=== PATIENT | female | born 1990 | race Caucasian/White ===

== ENCOUNTER 2016-09-30 15:16 | Emergency (ER) | payer OTHER ==
[~2016-09-30] VITALS: Ht 162.6 cm; Wt 104.3 kg
[~2016-09-30 15:16] MED LIST: FERROUS SULFAT325 MG PO; PRENATAL VITAMI1 T10 PO
[2016-09-30 15:44] VITALS: BP 115/63
--- NOTE | 2016-09-30 16:30 | NUR ---
PT STATES LOWER ABDOMEN PAIN HEMATURIA FOR 3 HOURS . DENIES V/D; SKIN IS PINK/WARM/DRY; AAOX4 WITH EVEN AND STEADY GAIT; LUNGS CLEAR BL; HR EVEN AND REGULAR; PT DENIES ANY FEVER, CP, SOB, OR COUGH AT THIS TIME; PATIENT STATES PAIN OF 8/10 AT THIS TIME; VSS; PATIENT POSITIONED FOR COMFORT; HOB ELEVATED; BEDRAILS UP X2; BED DOWN. ER MD MADE AWARE OF PT STATUS.
--- NOTE | 2016-09-30 17:40 | NUR ---
PT STATES PAIN SCALE 5/10 AT THIS TIME.
[2016-09-30 18:06] VITALS: BP 112/78
--- NOTE | 2016-09-30 18:06 | NUR ---
Patient discharged with v/s stable. Written and verbal after care instructions given and explained. Patient alert, oriented and verbalized understanding of instructions. Ambulatory with steady gait. All questions addressed prior to discharge. ID band removed. Patient advised to follow up with PMD. Rx of TRAMADOL AND MOTRIN given. Patient educated on indication of medication including possible reaction and side effects. Opportunity to ask questions provided and answered.
== END 2016-09-30 18:06 | disposition home or self-care (01) ==
LOC: MED 15:16
DX: N93.8 Other specified abnormal uterine and vaginal bleeding (principal); J45.909 Unspecified asthma, uncomplicated
CPT/HCPCS: 36415; 76856; 81002; 81025; 84702; 99285; Q0092

== ENCOUNTER 2016-10-17 09:17 | Emergency (ER) | payer OTHER ==
[~2016-10-17] VITALS: Ht 157.5 cm; Wt 104.3 kg
[2016-10-17 09:38] VITALS: BP 127/96
--- NOTE | 2016-10-17 09:41 | NUR ---
Patient ambulated to bed 07.
--- NOTE | 2016-10-17 09:55 | NUR ---
PATIENT PRESENTS TO ED WITH COUGH AND FEVER X7 DAYS WITH SOB; DENIES N/V/D; SKIN IS PINK/WARM/DRY; AAOX4 WITH EVEN AND STEADY GAIT; LUNGS CLEAR BL; HR EVEN AND REGULAR; PT DENIES ANY CP AT THIS TIME; PATIENT STATES PAIN OF 6/10 AT THIS TIME; VSS; PATIENT POSITIONED FOR COMFORT; HOB ELEVATED; BEDRAILS UP X2; BED DOWN. ER MD MADE AWARE OF PT STATUS.
--- NOTE | 2016-10-17 10:14 | NUR ---
Dr. Smith evaluating patient at bedside.
[2016-10-17 10:40] VITALS: BP 127/96
--- NOTE | 2016-10-17 10:40 | NUR ---
Patient discharged with v/s stable. Written and verbal after care instructions given and explained. Patient alert, oriented and verbalized understanding of instructions. Ambulatory with steady gait. All questions addressed prior to discharge. ID band removed. Patient advised to follow up with PMD. Rx of AMOXICILLIN, ALBUTEROL INHALER, DEXTHROMETHORPHAN given. Patient educated on indication of medication including possible reaction and side effects. Opportunity to ask questions provided and answered.
== END 2016-10-17 10:40 | disposition home or self-care (01) ==
LOC: MED 09:40
DX: J20.9 Acute bronchitis, unspecified (principal); R03.0 Elevated blood-pressure reading, without diagnosis of hypertension

== ENCOUNTER 2016-12-15 19:32 | Emergency (ER) | payer OTHER ==
[~2016-12-15] VITALS: Ht 160 cm; Wt 112.5 kg
[2016-12-15 19:56] VITALS: BP 120/64
--- NOTE | 2016-12-15 22:35 | NUR ---
PATIENT LEFT WITHOUT BEING SEEN BY DR. SCHMID. NO FURTHER CARE PROVIDED FOR PATIENT.
== END 2016-12-15 22:35 | disposition left against medical advice (07) ==
LOC: MED 19:32
DX: N93.9 Abnormal uterine and vaginal bleeding, unspecified (principal); Z53.21 Procedure and treatment not carried out due to patient leaving prior to being seen by health care provider

== ENCOUNTER 2016-12-20 13:30 | Emergency (ER) | payer OTHER ==
[~2016-12-20] VITALS: Ht 160 cm; Wt 112.9 kg
[2016-12-20 14:36] VITALS: BP 131/75
[2016-12-20 14:59] LABS: BASOPHILS # (AUTO) 0.1 K/uL (0.00-0.22); BASOPHILS % (AUTO) 1.3 % (0.0-2.0); EOSINOPHILS # (AUTO) 0.3 K/uL (0-0.4); EOSINOPHILS % (AUTO) 2.4 % (0.0-4.0); HEMATOCRIT 31.5 % (36-48); LYMPHOCYTES # (AUTO) 3.1 K/uL (2.5-16.5); LYMPHOCYTES % (AUTO) 27.9 % (20.5-51.1); MEAN CORPUSCULAR HEMOGLOBIN 24 pg (27-31); MEAN CORPUSCULAR HGB CONC 32 g/dL (33-37); MEAN CORPUSCULAR VOLUME 75 fL (80-94); MONOCYTES # (AUTO) 0.5 K/uL (0.8-1.0); MONOCYTES % (AUTO) 4.2 % (1.7-9.3); NEUTROPHILS # (AUTO) 7.3 K/uL (1.8-7.7); NEUTROPHILS % (AUTO) 64.2 % (42.2-75.2); PLATELET COUNT (AUTO) 265 K/uL (140-450); RED BLOOD CELL COUNT(AUTO) 4.17 MIL/uL (4.20-5.40); RED CELL DISTRIBUTION WIDTH 15.3 % (11.6-13.7); WHITE BLOOD COUNT (AUTO) 11.3 K/uL (4.8-10.8)
[2016-12-20 15:11] LABS: ANION GAP 13.4 (8-16); CALCIUM 8.7 mg/dL (8.5-10.1); CARBON DIOXIDE 28.2 mmol/L (21-32); CREATININE 0.7 mg/dL (0.6-1.3); POTASSIUM 3.6 mmol/L (3.5-5.1)
[2016-12-20 15:16] LABS: ALBUMIN 3.7 g/dL (3.4-5.0); TOTAL BILIRUBIN 0.5 mg/dL (0.0-1.0); TOTAL PROTEIN, SERUM 8.2 g/dL (6.4-8.2)
== END 2016-12-20 17:28 | disposition left against medical advice (07) ==
LOC: MED 13:30
DX: N93.9 Abnormal uterine and vaginal bleeding, unspecified (principal); Z53.21 Procedure and treatment not carried out due to patient leaving prior to being seen by health care provider
CPT/HCPCS: 36415; 76830; 80053; 85025

== ENCOUNTER 2017-03-05 18:31 | Emergency (ER) | payer OTHER ==
[~2017-03-05] VITALS: Ht 160 cm; Wt 110.0 kg
[2017-03-05 18:36] VITALS: BP 132/80
--- NOTE | 2017-03-05 19:48 | NUR ---
Patient to bed 08.
--- NOTE | 2017-03-05 20:06 | NUR ---
PATIENT PRESENTS TO ED WITH 26F BIB FAMILY C/O RIGHT LOWER ABDOMINAL PAIN X 5 DAYS WITH NAUSEA. HX: ASTHMA, ANEMIA RX: PT DENIES. DENIES V/D; SKIN IS PINK/WARM/DRY; AAOX4 WITH EVEN AND STEADY GAIT; LUNGS CLEAR BL; HR EVEN AND REGULAR; PT DENIES ANY FEVER, CP, SOB, OR COUGH AT THIS TIME; PATIENT STATES PAIN OF 10/10 AT THIS TIME; PATIENT POSITIONED FOR COMFORT; HOB ELEVATED; BEDRAILS UP X2; BED DOWN. ER MD MADE AWARE OF PT STATUS.
--- NOTE | 2017-03-05 20:28 | NUR ---
LAB AT BEDSIDE
[2017-03-05 20:39] LABS: EOSINOPHILS # (AUTO) 0.2 K/uL (0-0.4); HEMOGLOBIN 9.7 g/dL (12.0-16.0); NEUTROPHILS # (AUTO) 5.9 K/uL (1.8-7.7)
[2017-03-05 20:46] LABS: BILIRUBIN,URINE NEGATIVE (NEGATIVE); BLOOD, URINE NEGATIVE (NEGATIVE); COLOR,URINE YELLOW (YELLOW); LEUKOCYTE ESTERASE ,URINE NEGATIVE (NEGATIVE); NITRITE, URINE NEGATIVE (NEGATIVE); PH,URINE 6.5 (5.0-9.0); PROTEIN,URINE NEGATIVE (NEGATIVE); UGLUCOSE NEGATIVE (NEGATIVE)
[2017-03-05 20:49] LABS: APPEARANCE,URINE CLEAR (CLEAR)
[2017-03-05 20:49] LABS: BASOPHILS # (AUTO) 0.2 K/uL (0.00-0.22); HEMATOCRIT 32.4 % (36-48); LYMPHOCYTES # (AUTO) 3.3 K/uL (2.5-16.5); LYMPHOCYTES % (AUTO) 32.6 % (20.5-51.1); MEAN CORPUSCULAR HEMOGLOBIN 20 pg (27-31); MEAN CORPUSCULAR HGB CONC 30 g/dL (33-37); MEAN CORPUSCULAR VOLUME 67 fL (80-94); MONOCYTES # (AUTO) 0.5 K/uL (0.8-1.0); MONOCYTES % (AUTO) 5.3 % (1.7-9.3); NEUTROPHILS % (AUTO) 58.1 % (42.2-75.2); PLATELET COUNT (AUTO) 244 K/uL (140-450); RED BLOOD CELL COUNT(AUTO) 4.83 MIL/uL (4.20-5.40); RED CELL DISTRIBUTION WIDTH 17.7 % (11.6-13.7); WHITE BLOOD COUNT (AUTO) 10.1 K/uL (4.8-10.8)
[2017-03-05 20:50] LABS: ANION GAP 12.9 (8-16); CALCIUM 8.4 mg/dL (8.5-10.1); CARBON DIOXIDE 26.1 mmol/L (21-32); CREATININE 0.8 mg/dL (0.6-1.3)
[2017-03-05 20:56] LABS: ALBUMIN 3.6 g/dL (3.4-5.0); TOTAL BILIRUBIN 0.4 mg/dL (0.0-1.0); TOTAL PROTEIN, SERUM 7.9 g/dL (6.4-8.2)
--- NOTE | 2017-03-05 21:00 | NUR ---
PT DONTAEO, LOOKING AT HER PHONE AT THIS TIME,
[2017-03-05 21:11] LABS: ANISOCYTOSIS 1+; HYPOCHROMASIA 1+; SPHEROCYTES 1+
--- NOTE | 2017-03-05 21:17 | NUR ---
DR. WEATHERS AT BEDSIDE
[2017-03-05] MEDS ORDERED: NACL 0.9% 1,000 ML IV ONE (21:25)
--- NOTE | 2017-03-05 21:40 | NUR ---
PT WENT TO CT VIA [facility] AAO.
--- NOTE | 2017-03-05 22:05 | NUR ---
PT BACK FROM CT VIA WHEELCHAIR
[2017-03-05] MEDS ORDERED: MORPHINE SULFATE 4 MG/ML SYR IVP ONE (22:10)
[2017-03-05] MEDS ORDERED: ONDANSETRON 4 MG/2 ML VIAL IVP ONE (22:20)
--- NOTE | 2017-03-05 22:41 | NUR ---
PT RESTING AT THIS TIME, EYES CLOSE, VITAL SIGN STABLE, PT AAO, IVF ONGOING WELL TOLERATED.
[2017-03-05 23:38] VITALS: BP 128/81
--- NOTE | 2017-03-05 23:38 | NUR ---
Patient discharged with v/s stable. Written and verbal after care instructions given and explained. Patient alert, oriented and verbalized understanding of instructions. Ambulatory with steady gait. All questions addressed prior to discharge. ID band removed. Patient advised to follow up with PMD. Rx of ZANTAC given. Patient educated on indication of medication including possible reaction and side effects. Opportunity to ask questions provided and answered.ENCOURAGE FLUID INTAKE AND PT AGREED WITH IT.
== END 2017-03-05 23:38 | disposition home or self-care (01) ==
LOC: MED 18:31
DX: K29.70 Gastritis, unspecified, without bleeding (principal); J45.909 Unspecified asthma, uncomplicated; Z86.2 Personal history of diseases of the blood and blood-forming organs and certain disorders involving the immune mechanism
CPT/HCPCS: 36415; 74177; 80053; 81003; 81025; 82150; 83690; 84703; 85025; 96361; 96374; 96375; 99285; J2270; J2405; J7030; Q9967

== ENCOUNTER 2017-05-20 13:42 | Emergency (ER) | payer OTHER ==
[~2017-05-20] VITALS: Ht 162.6 cm; Wt 111.2 kg
[2017-05-20 13:51] VITALS: BP 97/64
--- NOTE | 2017-05-20 14:02 | NUR ---
Patient ambulated to bed 6. RN evaluating patient at bedside.
[2017-05-20] MEDS ORDERED: ONDANSETRON 4 MG ODT PO ONE (14:10)
[2017-05-20] MEDS ORDERED: KETOROLAC 30 MG/ML VIAL IM ONE (14:10)
--- NOTE | 2017-05-20 14:10 | NUR ---
PATIENT PRESENTS TO ED WITH C/O PAIN TO THE LOWER BACK WHEN URINATING . PT STATES HER SYMPTOMS STARTED TODAY . PATIENT ALSO REPORTS OF NAUSEA AND VOMITING; SKIN IS PINK/WARM/DRY; AAOX4 WITH EVEN AND STEADY GAIT; LUNGS CLEAR BL; HR EVEN AND REGULAR; PT DENIES ANY FEVER, CP, SOB, OR COUGH AT THIS TIME; PATIENT STATES PAIN OF 7/10 AT THIS TIME; VSS; PATIENT POSITIONED FOR COMFORT; HOB ELEVATED; BEDRAILS UP X2; BED DOWN. ER MD MADE AWARE OF PT STATUS.
[2017-05-20] MEDS ORDERED: IBUPROFEN 600 MG TAB PO ONE (14:30)
[2017-05-20 14:49] VITALS: BP 118/61
--- NOTE | 2017-05-20 14:50 | NUR ---
Patient discharged with v/s stable. Written and verbal after care instructions given and explained. Patient alert, oriented and verbalized understanding of instructions. Ambulatory with steady gait. All questions addressed prior to discharge. ID band removed. Patient advised to follow up with PMD. Rx of CIPRO, ACETAMINOPHEN, PHENAZOPYRIDINE HYDROCHLORIDE given. Patient educated on indication of medication including possible reaction and side effects. Opportunity to ask questions provided and answered.
== END 2017-05-20 14:50 | disposition home or self-care (01) ==
LOC: MED 13:42
DX: N39.0 Urinary tract infection, site not specified (principal); J45.909 Unspecified asthma, uncomplicated
CPT/HCPCS: 81002; 81025; 99283; S0119; J1885

== ENCOUNTER 2017-06-02 15:34 | Emergency (ER) | payer OTHER ==
[~2017-06-02] VITALS: Ht 165.1 cm; Wt 112.1 kg
[2017-06-02 16:16] VITALS: BP 115/74
--- NOTE | 2017-06-02 16:42 | NUR ---
Patient to bed 09.
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
[2017-06-02 17:27] LABS: APPEARANCE,URINE HAZY (CLEAR); BILIRUBIN,URINE NEGATIVE (NEGATIVE); BLOOD, URINE NEGATIVE (NEGATIVE); COLOR,URINE YELLOW (YELLOW); LEUKOCYTE ESTERASE ,URINE 1+ (NEGATIVE); NITRITE, URINE NEGATIVE (NEGATIVE); UGLUCOSE NEGATIVE (NEGATIVE)
[2017-06-02 17:51] LABS: RBC,URINE 0-5 (RARE) /HPF (0-5)
--- NOTE | 2017-06-02 17:51 | NUR ---
WENT TO ULTRASOUND ACCOMPANIED BY TECH.
--- NOTE | 2017-06-02 18:32 | NUR ---
Patient back from US.
[2017-06-02 18:41] VITALS: BP 112/78
== END 2017-06-02 18:41 | disposition home or self-care (01) ==
LOC: MED 15:34
DX: O23.41 Unspecified infection of urinary tract in pregnancy, first trimester (principal); R51 Headache; J45.909 Unspecified asthma, uncomplicated; Z3A.01 Less than 8 weeks gestation of pregnancy
CPT/HCPCS: 36415; 76801; 81001; 81025; 84702; 87086; 99285; Q0092

== ENCOUNTER 2017-06-15 13:27 | Emergency (ER) | payer OTHER ==
[~2017-06-15] VITALS: Ht 165.1 cm; Wt 65.9 kg
[2017-06-15 13:48] VITALS: BP 126/52
--- NOTE | 2017-06-15 14:15 | NUR ---
PT AMBULATED TO BED 12 AT THIS TIME.
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
[2017-06-15 15:01] LABS: BASOPHILS # (AUTO) 0.1 K/uL (0.00-0.22); BASOPHILS % (AUTO) 0.8 % (0.0-2.0); EOSINOPHILS # (AUTO) 0.1 K/uL (0-0.4); HEMOGLOBIN 10.2 g/dL (12.0-16.0); LYMPHOCYTES # (AUTO) 2.7 K/uL (2.5-16.5); LYMPHOCYTES % (AUTO) 26.8 % (20.5-51.1); MEAN CORPUSCULAR HEMOGLOBIN 22 pg (27-31); MEAN CORPUSCULAR HGB CONC 32 g/dL (33-37); MEAN CORPUSCULAR VOLUME 69 fL (80-94); MONOCYTES # (AUTO) 0.6 K/uL (0.8-1.0); MONOCYTES % (AUTO) 5.6 % (1.7-9.3); NEUTROPHILS # (AUTO) 6.6 K/uL (1.8-7.7); NEUTROPHILS % (AUTO) 65.8 % (42.2-75.2); PLATELET COUNT (AUTO) 247 K/uL (140-450); RED BLOOD CELL COUNT(AUTO) 4.64 MIL/uL (4.20-5.40); RED CELL DISTRIBUTION WIDTH 18.1 % (11.6-13.7); WHITE BLOOD COUNT (AUTO) 10.1 K/uL (4.8-10.8)
[2017-06-15 15:13] LABS: APPEARANCE,URINE SL CLOUDY (CLEAR); BILIRUBIN,URINE NEGATIVE (NEGATIVE); BLOOD, URINE NEGATIVE (NEGATIVE); COLOR,URINE YELLOW (YELLOW); LEUKOCYTE ESTERASE ,URINE 2+ (NEGATIVE); NITRITE, URINE NEGATIVE (NEGATIVE); UGLUCOSE NEGATIVE (NEGATIVE)
[2017-06-15 15:23] LABS: ALBUMIN 3.2 g/dL (3.4-5.0); ANION GAP 11.2 (8-16); CARBON DIOXIDE 27.2 mmol/L (21-32); CREATININE 0.8 mg/dL (0.6-1.3); POTASSIUM 3.4 mmol/L (3.5-5.1); TOTAL BILIRUBIN 0.3 mg/dL (0.0-1.0)
--- NOTE | 2017-06-15 15:26 | NUR ---
PT TO US VIA W/C
[2017-06-15 15:35] LABS: RBC,URINE 0-5 (RARE) /HPF (0-5); WBC,URINE 20-60 /HPF (0-5)
[2017-06-15] MEDS ORDERED: cefTRIAXone 1,000 MG VIAL ONE (16:32)
--- NOTE | 2017-06-15 16:49 | NUR ---
NO ADVERSE SIDE EFFCT TO ANBX, TOLERATED WELL.
[2017-06-15 17:13] VITALS: BP 102/79
--- NOTE | 2017-06-15 17:15 | NUR ---
Patient discharged with v/s stable. Written and verbal after care instructions given and explained. Patient verbalized understanding. Ambulatory with steady gait. All questions addressed prior to discharge. Advised to follow up with PMD.
== END 2017-06-15 17:15 | disposition home or self-care (01) ==
LOC: MED 13:27
DX: O23.41 Unspecified infection of urinary tract in pregnancy, first trimester (principal); Z3A.01 Less than 8 weeks gestation of pregnancy; J45.909 Unspecified asthma, uncomplicated
CPT/HCPCS: 36415; 76801; 80053; 81001; 83690; 84702; 84703; 85025; 87086; 96365; 99285; J0696

== ENCOUNTER 2017-10-11 21:55 | Observation (INO) | payer OTHER ==
[~2017-10-11] VITALS: Ht 162.6 cm; Wt 114.3 kg
[~2017-10-11 21:55] MED LIST changes: -FERROUS SULFAT325 MG PO; +FERROUS SULFATE 325 MG TABLET; +LANCETS; +PREDNISONE 20 MG TABLET; -PRENATAL VITAMI1 T10 PO; +VITAMIN B6; +[UNRECOGNIZED DRUG - OTHER]; +[UNRECOGNIZED DRUG - SUPPLY]
[2017-10-11 22:42] VITALS: BP 111/57
== END 2017-10-12 00:35 | disposition home or self-care (01) ==
LOC: MLD 21:55
PROVIDERS: ADMIT Obstetrics & Gynecology; ATTEND Obstetrics & Gynecology
DX: O26.892 Other specified pregnancy related conditions, second trimester (principal); R10.30 Lower abdominal pain, unspecified; Z3A.25 25 weeks gestation of pregnancy
CPT/HCPCS: 76805; G0378; Q0092

== ENCOUNTER 2018-08-30 13:58 | Emergency (ER) | payer MEDICAID ==
[~2018-08-30] VITALS: Ht 165.1 cm; Wt 108.5 kg
[2018-08-30 14:00] VITALS: BP 133/76
[2018-08-30] MEDS ORDERED: NACL 0.9% 1,000 ML IV ONE (14:38)
[2018-08-30] MEDS ORDERED: diphenhydrAMINE 50 MG/ML VIAL IVP ONE (14:40)
[2018-08-30] MEDS ORDERED: METOCLOPRAMIDE 10 MG/2 ML INJ VIAL IVP ONE (14:40)
[2018-08-30 15:54] VITALS: BP 103/54
== END 2018-08-30 15:54 | disposition home or self-care (01) ==
LOC: MED 13:58
DX: R51 Headache (principal); N39.0 Urinary tract infection, site not specified; J45.909 Unspecified asthma, uncomplicated; Z79.899 Other long term (current) drug therapy; Z98.890 Other specified postprocedural states
CPT/HCPCS: 81002; 81025; 96374; 96375; 99283; J1200; J2765; J7030

== ENCOUNTER 2018-09-30 09:26 | Emergency (ER) | payer SELFPAY ==
[~2018-09-30] VITALS: Ht 170.2 cm; Wt 105.7 kg
[2018-09-30 09:28] VITALS: BP 121/97
--- NOTE | 2018-09-30 09:41 | NUR ---
27 YO F BIB FAMILY W/ C/O RIGHT SIDED LOWER BACK PAIN X LAST NIGHT. STATES THAT HER BACK STARTED HURTING AFTER SHE STOOD UP FROM THE COUGH TOO QUICKLY. PT REPORTS THAT SHE CANNOT MOVE W/O PAIN. STATES THAT IT IS A PINCHING PAIN DOWN THE RIGHT SIDE. STATES THAT SHE FEELS LIKE HER SPINE IS GOING TO BREAK. STATES SHE CAN WALK, BUT THE PAIN IS TOO INTENSE. NAUSEA DENIES VOMITING. IBUPROFEN TAKEN AT 0400. SKIN IS INTACT, PINK/WARM/DRY; AAOX4, PERRL, WITH EVEN AND STEADY GAIT; LUNGS CLEAR BL, BREATHING UNLABORED; HR EVEN AND REGULAR, BL PERIPHERAL PULSES PRESENT;PT DENIES ANY FEVER, CP, SOB, OR COUGH AT THIS TIME; PT STATES 10/10 PAIN AT THIS TIME; VSS; PATIENT POSITIONED FOR COMFORT; HOB ELEVATED; BEDRAILS UP X2; BED DOWN. HX ASTHMA RX INHALERS
[2018-09-30] MEDS ORDERED: IBUPROFEN 800 MG TAB PO ONE (10:30)
[2018-09-30] MEDS ORDERED: LEVOFLOXACIN 500 MG TAB PO ONE (10:30)
[2018-09-30 10:42] LABS: APPEARANCE,URINE SL CLOUDY (CLEAR); BILIRUBIN,URINE NEGATIVE (NEGATIVE); BLOOD, URINE 3+ (NEGATIVE); COLOR,URINE YELLOW (YELLOW); LEUKOCYTE ESTERASE ,URINE 1+ (NEGATIVE); NITRITE, URINE NEGATIVE (NEGATIVE); UGLUCOSE NEGATIVE (NEGATIVE)
[2018-09-30 10:45] LABS: RBC,URINE 11-20 (MOD) /HPF (0-5)
[2018-09-30 10:46] LABS: WBC,URINE 20-60 /HPF (0-5)
[2018-09-30 10:50] LABS: BARBITURATE, URINE NEG. ng/ml (NEG <=200); BENZODIAZEPINE, URINE NEG. ng/mL (NEG <=200); CANNABINOID, URINE NEG. ng/mL (NEG <=50); COCAINE, URINE NEG. ng/mL (NEG <=300); OPIATE, URINE NEG. ng/mL (NEG <=2000); PHENCYCLIDINE SCREEN,URINE NEG. ng/mL (NEG <=25)
[2018-09-30 11:33] VITALS: BP 118/92
--- NOTE | 2018-09-30 11:33 | NUR ---
Patient discharged with v/s stable. Written and verbal after care instructions given and explained. Patient alert, oriented and verbalized understanding of instructions. Ambulatory with steady gait. All questions addressed prior to discharge. ID band removed. Patient advised to follow up with PMD. Rx of Motrin and Levaquin given. Patient educated on indication of medication including possible reaction and side effects. Opportunity to ask questions provided and answered.
== END 2018-09-30 11:33 | disposition home or self-care (01) ==
LOC: MED 09:26
DX: N30.90 Cystitis, unspecified without hematuria (principal); J45.909 Unspecified asthma, uncomplicated; Z79.899 Other long term (current) drug therapy
CPT/HCPCS: 80305; 81001; 81025; 87086; 99283

== ENCOUNTER 2018-10-25 14:29 | Emergency (ER) | payer MEDICAID ==
[~2018-10-25] VITALS: Ht 162.6 cm; Wt 108.9 kg
[2018-10-25 14:38] VITALS: BP 139/91
--- NOTE | 2018-10-25 15:47 | NUR ---
PT AMBULATED TO ER BED 01
--- NOTE | 2018-10-25 15:59 | NUR ---
C/O MID LOWER ABDOMINAL CRAMPING PAIN RADIATING TO RIGHT LOWER BACK 7/10 , BURNING URINATION, NAUSEA X2 DAYS. DENIES V/D; SKIN IS PINK/WARM/DRY; AAOX4 WITH EVEN AND STEADY GAIT; LUNGS CLEAR BL; HR EVEN AND REGULAR; PT DENIES ANY FEVER, CP, SOB, OR COUGH AT THIS TIME; PATIENT STATES PAIN OF 7/10 AT THIS TIME; VSS; PATIENT POSITIONED FOR COMFORT; HOB ELEVATED; BEDRAILS UP X2; BED DOWN. ER MD MADE AWARE OF PT STATUS.
[2018-10-25 16:59] LABS: APPEARANCE,URINE SL CLOUDY (CLEAR); BILIRUBIN,URINE NEGATIVE (NEGATIVE); BLOOD, URINE NEGATIVE (NEGATIVE); COLOR,URINE YELLOW (YELLOW); LEUKOCYTE ESTERASE ,URINE 1+ (NEGATIVE); NITRITE, URINE NEGATIVE (NEGATIVE); PH,URINE 6.5 (5.0-9.0); UGLUCOSE NEGATIVE (NEGATIVE)
[2018-10-25 17:02] VITALS: BP 135/78
--- NOTE | 2018-10-25 17:05 | NUR ---
Patient discharged with v/s stable. Written and verbal after care instructions given and explained. Patient alert, oriented and verbalized understanding of instructions. Ambulatory with steady gait. All questions addressed prior to discharge. ID band removed. Patient advised to follow up with PMD. Opportunity to ask questions provided and answered.
[2018-10-25 17:17] LABS: RBC,URINE 0-5 /HPF (0-5); WBC,URINE 16-25 (MOD) /HPF (0-5)
== END 2018-10-25 17:05 | disposition home or self-care (01) ==
LOC: MED 14:29
DX: O26.899 Other specified pregnancy related conditions, unspecified trimester (principal); R10.30 Lower abdominal pain, unspecified; R11.0 Nausea; J45.909 Unspecified asthma, uncomplicated; Z79.899 Other long term (current) drug therapy
CPT/HCPCS: 36415; 81001; 81025; 84702; 86900; 86901; 87086; 99283

== ENCOUNTER 2018-10-30 18:03 | Emergency (ER) | payer MEDICAID ==
[~2018-10-30] VITALS: Ht 162.6 cm; Wt 111.6 kg
[2018-10-30 18:07] VITALS: BP 95/56
--- NOTE | 2018-10-30 18:59 | NUR ---
PT AMBULATES TO BED 4
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
[2018-10-30 19:37] LABS: BASOPHILS # (AUTO) 0.1 K/uL (0.00-0.22); BASOPHILS % (AUTO) 0.5 % (0.0-2.0); EOSINOPHILS # (AUTO) 0.1 K/uL (0-0.4); EOSINOPHILS % (AUTO) 1.1 % (0.0-4.0); HEMATOCRIT 32.8 % (36-48); HEMOGLOBIN 10.5 g/dL (12.0-16.0); LYMPHOCYTES # (AUTO) 3.1 K/uL (2.5-16.5); LYMPHOCYTES % (AUTO) 32.8 % (20.5-51.1); MEAN CORPUSCULAR HEMOGLOBIN 24 pg (27-31); MEAN CORPUSCULAR HGB CONC 32 g/dL (33-37); MEAN CORPUSCULAR VOLUME 74.7 fL (80-94); MONOCYTES # (AUTO) 0.4 K/uL (0.8-1.0); MONOCYTES % (AUTO) 4.5 % (1.7-9.3); NEUTROPHILS # (AUTO) 5.8 K/uL (1.8-7.7); NEUTROPHILS % (AUTO) 61.1 % (42.2-75.2); PLATELET COUNT (AUTO) 223 K/uL (140-450); RED BLOOD CELL COUNT(AUTO) 4.39 MIL/uL (4.20-5.40); RED CELL DISTRIBUTION WIDTH 16.8 % (11.6-13.7); WHITE BLOOD COUNT (AUTO) 9.6 K/uL (4.8-10.8)
[2018-10-30 20:58] LABS: APPEARANCE,URINE HAZY (CLEAR); BILIRUBIN,URINE NEGATIVE (NEGATIVE); BLOOD, URINE NEGATIVE (NEGATIVE); COLOR,URINE YELLOW (YELLOW); LEUKOCYTE ESTERASE ,URINE 1+ (NEGATIVE); NITRITE, URINE NEGATIVE (NEGATIVE); UGLUCOSE NEGATIVE (NEGATIVE)
[2018-10-30 21:01] LABS: RBC,URINE 0-5 /HPF (0-5)
[2018-10-30 21:51] VITALS: BP 101/66
--- NOTE | 2018-10-30 21:51 | NUR ---
DISCHARGE INSTRUCTIONS PROVIDED. VSS. 2/10 PAIN BUT TOLLERABLE. VERBALLIZED UNDERSTANDING OF DC INSTRUCTIONS. ALL QUESTIONS ANSWERED. PROVIDED WITH COPY OF LABS PER PT REQUEST.
== END 2018-10-30 21:51 | disposition home or self-care (01) ==
LOC: MED 18:03
DX: O23.41 Unspecified infection of urinary tract in pregnancy, first trimester (principal); J45.909 Unspecified asthma, uncomplicated; Z79.899 Other long term (current) drug therapy; Z3A.01 Less than 8 weeks gestation of pregnancy
CPT/HCPCS: 36415; 81001; 81025; 84702; 85025; 87086; 99283

== ENCOUNTER 2018-11-02 11:13 | Emergency (ER) | payer MEDICAID ==
[~2018-11-02] VITALS: Ht 162.6 cm; Wt 111.1 kg
[2018-11-02 11:21] VITALS: BP 119/47
--- NOTE | 2018-11-02 11:26 | NUR ---
PATIENT PRESENTS TO ED WITH C/O VAGINAL BLEEDING ON MONDAY, PT IS 5 WEEKS , [id number], PT STATES SHE WAS SENT OVER FROM PCP FOR POSSIBILE ETOPIC . DENIES N/V/D; SKIN IS PINK/WARM/DRY; LUNGS CLEAR BL; HR EVEN AND REGULAR; PT DENIES ANY FEVER, CP, SOB, OR COUGH AT THIS TIME; DENIES PAIN, VSS; PATIENT POSITIONED FOR COMFORT; HOB ELEVATED; BEDRAILS UP X2; BED DOWN. ER MD MADE AWARE OF PT STATUS.
--- NOTE | 2018-11-02 11:40 | NUR ---
Patient being evaluated by physician at bedside.
--- NOTE | 2018-11-02 12:04 | NUR ---
PATIENT TAKEN TO ULTRASOUND AT THIS TIME
[2018-11-02 12:08] LABS: APPEARANCE,URINE HAZY (CLEAR); BASOPHILS % (AUTO) 0.4 % (0.0-2.0); BILIRUBIN,URINE NEGATIVE (NEGATIVE); BLOOD, URINE NEGATIVE (NEGATIVE); COLOR,URINE ORANGE (YELLOW); EOSINOPHILS # (AUTO) 0.1 K/uL (0-0.4); EOSINOPHILS % (AUTO) 0.9 % (0.0-4.0); HEMATOCRIT 34.5 % (36-48); HEMOGLOBIN 11.1 g/dL (12.0-16.0); LEUKOCYTE ESTERASE ,URINE 3+ (NEGATIVE); LYMPHOCYTES # (AUTO) 2.6 K/uL (2.5-16.5); LYMPHOCYTES % (AUTO) 31.4 % (20.5-51.1); MEAN CORPUSCULAR HEMOGLOBIN 24 pg (27-31); MEAN CORPUSCULAR HGB CONC 32 g/dL (33-37); MEAN CORPUSCULAR VOLUME 74.4 fL (80-94); MONOCYTES # (AUTO) 0.4 K/uL (0.8-1.0); MONOCYTES % (AUTO) 5.3 % (1.7-9.3); NEUTROPHILS # (AUTO) 5.2 K/uL (1.8-7.7); NITRITE, URINE NEGATIVE (NEGATIVE); PLATELET COUNT (AUTO) 218 K/uL (140-450); RED BLOOD CELL COUNT(AUTO) 4.65 MIL/uL (4.20-5.40); RED CELL DISTRIBUTION WIDTH 16.8 % (11.6-13.7); UGLUCOSE NEGATIVE (NEGATIVE); WHITE BLOOD COUNT (AUTO) 8.3 K/uL (4.8-10.8)
--- NOTE | 2018-11-02 12:26 | NUR ---
PATIENT RETURNED FROM ULTRASOUND VIA WHEELCHAIR
[2018-11-02 12:30] LABS: RBC,URINE 0-5 /HPF (0-5); URINE AMORPHOUS URATE 2+ /HPF (None Seen)
[2018-11-02 13:37] VITALS: BP 119/47
== END 2018-11-02 13:37 | disposition home or self-care (01) ==
LOC: MED 11:13
DX: O20.0 Threatened abortion (principal); J45.909 Unspecified asthma, uncomplicated; Z79.899 Other long term (current) drug therapy
CPT/HCPCS: 36415; 76817; 81001; 84702; 85025; 86900; 86901; 87086; 99284

== ENCOUNTER 2018-12-13 18:57 | Emergency (ER) | payer MEDICAID, OTHER ==
[~2018-12-13] VITALS: Ht 162.6 cm; Wt 99.0 kg
[2018-12-13 19:04] VITALS: BP 132/69
--- NOTE | 2018-12-13 19:10 | NUR ---
PT AMBULATED TO BED 2
--- NOTE | 2018-12-13 19:11 | NUR ---
PT CAME IN WITH C/O RIGHT JAW PAIN. PT HAS PAIN THAT RADIATES FROM BELOW THE CHIN TO THE TOP OF HER EYE BROW. PT HAS SOME SWELLING TO THE RIGHT SIDE UNDER JAW LINE. PT HAS BODY ACHES AND HAS HAD A TEMP OF 101. TODAY. PT TOOK TYLENOL. PT ALSO STATED SHE HAS NUMBNESS TO THE RIGHT/INSIDE OF MOUTH. PT HAS SOME NAUSEA BU DENIES VOMITING OR DIARRHEA. PT STATED SHE IS 11 TO 12 WEEKS . LMP WAS . PT IS A/O X 4. PAIN LEVEL IS 10/10 AT THIS ITME. ER MD MADE AWARE OF STATUS. SAFETY PRECAUTIONS IN PLACE. BED RAILS UP X 1.
--- NOTE | 2018-12-13 20:15 | NUR ---
WAS NOT ABLE TO HEAR FHT WITH MONITOR, DUE TO PT BEING 11-12 WEEKS. ER MADE AWARE.
[2018-12-13 20:25] VITALS: BP 132/69
--- NOTE | 2018-12-13 20:25 | NUR ---
Patient discharged with v/s stable. Written and verbal after care instructions given and explained. Patient alert, oriented and verbalized understanding of instructions. Ambulatory with steady gait. All questions addressed prior to discharge. ID band removed. Patient advised to follow up with PMD. Rx of TYLENOL WAS given. Patient educated on indication of medication including possible reaction and side effects. Opportunity to ask questions provided and answered.
== END 2018-12-13 20:25 | disposition home or self-care (01) ==
LOC: MED 18:57
DX: O26.891 Other specified pregnancy related conditions, first trimester (principal); I88.9 Nonspecific lymphadenitis, unspecified; J45.909 Unspecified asthma, uncomplicated; Z79.899 Other long term (current) drug therapy; Z3A.11 11 weeks gestation of pregnancy
CPT/HCPCS: 81002; 81025; 99282

== ENCOUNTER 2018-12-14 14:50 | Emergency (ER) | payer OTHER ==
[~2018-12-14] VITALS: Ht 162.6 cm; Wt 111.6 kg
[2018-12-14 14:55] VITALS: BP 107/81
--- NOTE | 2018-12-14 15:04 | NUR ---
PATIENT AMBULATED TO BED 7.
--- NOTE | 2018-12-14 15:10 | NUR ---
PATIENT PRESENTS TO ED WITH C/O ONE SIDED FACE SWELLING X 3 DAYS. 11 WEEKS . PATIENT IS ALERT AND ORIENTED TO PERSON, PLACE, TIME AND EVENT.CLEAR SPEECH. PUPILS EQUAL AND REACTIVE TO LIGHT BILATERALLY . ASYMMETRICAL SMILE NOTED. BILATERAL HAND LOAN PROCESSING SUPERVISOR EQUAL. BILATERAL FOOT PUSH EQUAL. PT STATES THAT WAS SEEN TODAY IN [facility] ER WHERE A STROKE WAS RULED OUT WITH A MRI. PT STATED SHE RECEIVED A CALL FROM THE PHYSICIAN OF [facility] WHO INSTRUCTED HER TO RETURN TO ER FOR AN ULTRASOUND DUE TO LOW hCG LEVELS. PT DENIES ANY VAGINAL BLEEDING OR DISCHARGE.
--- NOTE | 2018-12-14 15:20 | NUR ---
DR ASHER AT BEDSIDE EVALUATING PT.
--- NOTE | 2018-12-14 16:28 | NUR ---
Ultrasound at bedside.
[2018-12-14 18:25] VITALS: BP 115/54
== END 2018-12-14 18:34 | disposition home or self-care (01) ==
LOC: MED 14:50
DX: O20.0 Threatened abortion (principal); J45.909 Unspecified asthma, uncomplicated; Z3A.11 11 weeks gestation of pregnancy; Z88.8 Allergy status to other drugs, medicaments and biological substances
CPT/HCPCS: 36415; 76801; 81002; 81025; 84702; 99284; Q0092

== ENCOUNTER 2021-04-05 17:23 | Emergency (ER) | payer OTHER ==
[~2021-04-05] VITALS: Ht 162.6 cm; Wt 106.1 kg
[2021-04-05 17:29] VITALS: BP 129/78
--- NOTE | 2021-04-05 17:33 | NUR ---
PT TO WAIT IN LOBBY.
--- NOTE | 2021-04-05 19:12 | NUR ---
PT TAKEN TO XR VIA W/C.
--- NOTE | 2021-04-05 19:12 | NUR ---
COLLECTED KOLBY TROY, WALKED TO LAB.
--- NOTE | 2021-04-05 19:15 | NUR ---
PT IN TENT.
[2021-04-05] MEDS ORDERED: BENZ-196 PO (19:32)
[2021-04-05] MEDS ORDERED: ALBU0.0912 IH (19:32)
[2021-04-05 19:45] VITALS: BP 129/78
== END 2021-04-05 19:45 | disposition home or self-care (01) ==
LOC: MED 17:23
DX: R05 Cough (principal); R07.9 Chest pain, unspecified; R06.2 Wheezing; Z20.822 Contact with and (suspected) exposure to COVID-19
CPT/HCPCS: 71045; 99284; U0003

== ENCOUNTER 2021-12-07 09:03 | Emergency (ER) | payer OTHER ==
[~2021-12-07] VITALS: Ht 162.6 cm; Wt 115.7 kg
[~2021-12-07 09:03] MED LIST changes: +ALBU0.0912 IH; +BENZ-196 PO
--- NOTE | 2021-12-07 09:15 | NUR ---
PT AMBULATED TO ER BED 1 WITH A STEADY GAIT.
[2021-12-07 09:19] VITALS: BP 112/44
--- NOTE | 2021-12-07 09:24 | NUR ---
31 Y/O FEMALE C/O SOB, SUBJECTIVE FEVER 103 AT HOME, DRY NON-PRODUCTIVE COUGH, LOSS OF TASTE/SMELL, +N/V/D, FATIGUE, AND CHEST PAIN 8/10 X2DAYS. PT SPO2 100% ON RA. LUNGS ARE CLEAR THROUGHOUT. PT STATES SHE TOOK TYNENOL/IBUPROFEN AT 0430AM. PMH: ASTHMA NKA
--- NOTE | 2021-12-07 09:40 | NUR ---
pt ayde swabbed for covid and flu , handed to lab at bedside
--- NOTE | 2021-12-07 09:45 | NUR ---
XRAY AT BEDSIDE
[2021-12-07] MEDS ORDERED: NIRM1TAB PO (10:05)
[2021-12-07] MEDS ORDERED: ONDA-188 PO (10:05)
--- NOTE | 2021-12-07 10:47 | NUR ---
Patient discharged with v/s stable. Written and verbal after care instructions FOR COVID 19 given and explained. Patient alert, oriented and verbalized understanding of instructions. Ambulatory with steady gait. All questions addressed prior to discharge. ID band removed. Patient advised to follow up with PMD. Rx of NIRMATRELVIR AND ONDANSETRON given. Opportunity to ask questions provided and answered.
[2021-12-07 10:49] VITALS: BP 107/54
== END 2021-12-07 10:47 | disposition home or self-care (01) ==
LOC: MED 09:03
DX: U07.1 COVID-19 (principal); J45.909 Unspecified asthma, uncomplicated; Z98.890 Other specified postprocedural states; Z98.51 Tubal ligation status; Z79.899 Other long term (current) drug therapy
CPT/HCPCS: 71045; 87426; 87804; 99284; Q0092

== ENCOUNTER 2021-12-11 11:06 | Emergency (ER) | payer OTHER ==
[~2021-12-11] VITALS: Ht 162.6 cm; Wt 113.4 kg
[~2021-12-11 11:06] MED LIST changes: +NIRM1TAB PO; +ONDA-188 PO
[2021-12-11 11:15] VITALS: BP 123/77
--- NOTE | 2021-12-11 11:25 | NUR ---
31 Y/O FEMALE BIB SELF C/O BURNING CHEST PAIN 02/13 XYDAY, TINGGLING IN THE FACE, MASS IN THE RIGHT NECK, AND DIFFICULTY BREATHING. PT TESTED POSITIVE FOR COVID ON MONDAY. TOOK TYLENOL 500MG FOR PAIN WITH MINIMAL EFFECT. NKA PMH: ASTHMA
--- NOTE | 2021-12-11 11:29 | NUR ---
DR DENIS AT BEDSIDE FOR EVAL
[2021-12-11] MEDS ORDERED: TETRACAINE HCL/PF 0.5% OPTH 4 ML BTL OP ONE (11:40)
[2021-12-11] MEDS ORDERED: FLUORESCEIN OPTH STRIP 1 MG OP ONE ×2 (11:40)
[2021-12-11] MEDS ORDERED: KETOROLAC 30 MG/ML VIAL IM ONE (11:40)
[2021-12-11] MEDS ORDERED: IBUPROFEN 800 MG TAB PO ONE (12:00)
--- NOTE | 2021-12-11 12:04 | NUR ---
PT WHEELED TO CT
--- NOTE | 2021-12-11 12:11 | NUR ---
PT RETURNED FROM CT SCAN
[2021-12-11] MEDS ORDERED: FLUORESCEIN OPTH STRIP 1 MG ONE (13:14)
[2021-12-11] MEDS ORDERED: IBUP-2213 PO (13:24)
[2021-12-11] MEDS ORDERED: ACYC-278 PO (13:24)
[2021-12-11] MEDS ORDERED: BACTO TP (13:24)
[2021-12-11 13:36] VITALS: BP 137/67
--- NOTE | 2021-12-11 13:36 | NUR ---
Patient discharged with v/s stable. Written and verbal after care instructions given and explained. Patient alert, oriented and verbalized understanding of instructions. Ambulatory with steady gait. All questions addressed prior to discharge. ID band removed. Patient advised to follow up with PMD. Rx of ACYCLOVIR, MOTRIN, BACTROBAN 2% OINTMENT given. Patient educated on indication of medication including possible reaction and side effects. Opportunity to ask questions provided and answered.
== END 2021-12-11 13:36 | disposition home or self-care (01) ==
LOC: MED 11:06
DX: U07.1 COVID-19 (principal); R59.1 Generalized enlarged lymph nodes; B02.9 Zoster without complications; B34.9 Viral infection, unspecified; J45.909 Unspecified asthma, uncomplicated; Z79.899 Other long term (current) drug therapy; Z88.5 Allergy status to narcotic agent; Z88.8 Allergy status to other drugs, medicaments and biological substances
CPT/HCPCS: 70490; 99284; J1885

== ENCOUNTER 2022-01-30 18:20 | Emergency (ER) | payer OTHER ==
[~2022-01-30] VITALS: Ht 162.6 cm; Wt 115.2 kg
[~2022-01-30 18:20] MED LIST changes: +ACYC-278 PO; +BACTO TP; +IBUP-2213 PO
[2022-01-30 18:45] VITALS: BP 110/71
--- NOTE | 2022-01-30 18:48 | NUR ---
TO LOBBY A/W BED AMBULATORY
--- NOTE | 2022-01-30 19:30 | NUR ---
Patient ambulated to bed 7.
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
--- NOTE | 2022-01-30 19:54 | NUR ---
Dr. Aldana examining patient.
--- NOTE | 2022-01-30 20:00 | NUR ---
[place] [facility] in [facility] - 01/30/22 at 2000 by VALENTIN MD JAMES AT BEDSIDE
[2022-01-30] MEDS ORDERED: ACET-8386 PO (20:02)
[2022-01-30] MEDS ORDERED: IBUP-2213 PO (20:03)
[2022-01-30 20:25] VITALS: BP 110/71
--- NOTE | 2022-01-30 20:28 | NUR ---
Chart checked and completed.
== END 2022-01-30 20:25 | disposition home or self-care (01) ==
LOC: MED 18:20
DX: S60.052A Contusion of left little finger without damage to nail, initial encounter (principal); J45.909 Unspecified asthma, uncomplicated; Z79.899 Other long term (current) drug therapy; Z88.5 Allergy status to narcotic agent; Z88.8 Allergy status to other drugs, medicaments and biological substances; Z98.890 Other specified postprocedural states; W10.9XXA Fall (on) (from) unspecified stairs and steps, initial encounter; Y93.89 Activity, other specified; Y92.89 Other specified places as the place of occurrence of the external cause; Y99.8 Other external cause status
CPT/HCPCS: 73130; 99283

== ENCOUNTER 2022-03-22 17:59 | Emergency (ER) | payer OTHER ==
[~2022-03-22] VITALS: Ht 157.5 cm; Wt 117.5 kg
[~2022-03-22 17:59] MED LIST changes: +ACET-8386 PO
[2022-03-22 18:33] VITALS: BP 141/76
[2022-03-22] MEDS ORDERED: CEPH-588 PO (19:25)
--- NOTE | 2022-03-22 20:13 | NUR ---
CALLED PT IN LOBBY AND OUTSIDE FOR DISCHARGE WITH NO ANSWER. PT LEFT FACILITY WITHOUT INSTRUCTIONS
== END 2022-03-22 20:13 | disposition home or self-care (01) ==
LOC: MED 17:59
DX: N12 Tubulo-interstitial nephritis, not specified as acute or chronic (principal); J45.909 Unspecified asthma, uncomplicated
CPT/HCPCS: 81002; 81025; 99283

== ENCOUNTER 2022-07-08 11:09 | Emergency (ER) | payer OTHER ==
[~2022-07-08] VITALS: Ht 162.6 cm; Wt 117.5 kg
[~2022-07-08 11:09] MED LIST changes: +CEPH-588 PO
[2022-07-08 11:18] VITALS: BP 122/77
--- NOTE | 2022-07-08 11:28 | NUR ---
Pt at bench outside ER lobby.
--- NOTE | 2022-07-08 11:30 | NUR ---
Flu/COVID walked to lab.
--- NOTE | 2022-07-08 11:40 | NUR ---
31/f walked in c/o productive cough, fever, and body ache onset 3 days. pt reports negative covid test on 07/04. pt states taking 800 mg advil @ 0730 today. aao4, ambulatory, vitals stable PMH/Meds: asthma - albuterol / ventolin Sx: tubal ligation, breast reduction/implant Allergies: toradol, tramadol
[2022-07-08] MEDS ORDERED: PROM118S5 PO (13:47)
[2022-07-08] MEDS ORDERED: LIDO100S PO (13:47)
[2022-07-08] MEDS ORDERED: SUD30 PO (13:47)
[2022-07-08] MEDS ORDERED: PRON INH (13:47)
[2022-07-08 13:54] VITALS: BP 126/68
== END 2022-07-08 13:54 | disposition home or self-care (01) ==
LOC: MED 11:09
DX: J06.9 Acute upper respiratory infection, unspecified (principal); Z20.822 Contact with and (suspected) exposure to COVID-19; J45.909 Unspecified asthma, uncomplicated
CPT/HCPCS: 71045; 87426; 87804; 99284; Q0092

== ENCOUNTER 2022-10-05 09:10 | Emergency (ER) | payer OTHER ==
[~2022-10-05] VITALS: Ht 162.6 cm; Wt 119.7 kg
[~2022-10-05 09:10] MED LIST changes: -ACET-8386 PO; +ACET-8905 PO; +LIDO100S PO; +PROM118S5 PO; +PRON INH; +SUD30 PO
--- NOTE | 2022-10-05 09:20 | NUR ---
PT AMBULATED TO BED 07 Addendum: 10/05/22 at [email or web address] PUENTE AT BEDSIDE.
[2022-10-05 09:22] VITALS: BP 135/97
[2022-10-05] MEDS ORDERED: CYCLOBENZAPRINE 10 MG TAB PO ONE (09:25)
--- NOTE | 2022-10-05 09:25 | NUR ---
31 y/o female bib self, c/o upper back pain "in between shoulder blades" radiates to right hip for 2 weeks with ribeiro. denies dysuria, hematuria. 8/10 sharp pain. a&ox4, ambulates with steady gait. pmh: asthma allergy: tramadol (hives) med: denies
--- NOTE | 2022-10-05 09:36 | NUR ---
31 y/o female bib self, c/o upper back pain "in between shoulder blades" radiates to right hip for 2 weeks with ribeiro. denies dysuria, hematuria. 8/10 sharp pain. pt took 2x500 tylenol yesterday with no releave. pmh: asthma allergy: tramadol (hives) med: denies
--- NOTE | 2022-10-05 09:44 | NUR ---
PT TO X-RAY VIA WHEELCHAIR.
[2022-10-05] MEDS ORDERED: LIDOCAINE 5% 1 EA PATCH TP ONE (09:53)
[2022-10-05 10:01] LABS: APPEARANCE,URINE CLEAR (CLEAR); BILIRUBIN,URINE NEGATIVE (NEGATIVE); BLOOD, URINE 3+ (NEGATIVE); COLOR,URINE YELLOW (YELLOW); LEUKOCYTE ESTERASE ,URINE 3+ (NEGATIVE); NITRITE, URINE NEGATIVE (NEGATIVE); UGLUCOSE NEGATIVE (NEGATIVE)
--- NOTE | 2022-10-05 10:24 | NUR ---
PT TO CT SCAN VIA WHEELCHAIR.
[2022-10-05 10:30] LABS: RBC,URINE 0-5 /HPF (0-5)
[2022-10-05 12:16] VITALS: BP 108/49
--- NOTE | 2022-10-05 12:18 | NUR ---
The patient's care was reviewed and supervised by Zaina Mathews, RN, RN.
[2022-10-06] MEDS ORDERED: LIDOCAINE 5% 1 EA PATCH TP SCH (09:00)
== END 2022-10-05 12:17 | disposition home or self-care (01) ==
LOC: MED 09:10
DX: M54.6 Pain in thoracic spine (principal); R50.9 Fever, unspecified; R05.9 Cough, unspecified; J02.9 Acute pharyngitis, unspecified; J45.909 Unspecified asthma, uncomplicated; Z79.899 Other long term (current) drug therapy; Z79.2 Long term (current) use of antibiotics; Z79.1 Long term (current) use of non-steroidal anti-inflammatories (NSAID); Z79.891 Long term (current) use of opiate analgesic; Z88.5 Allergy status to narcotic agent
CPT/HCPCS: 71046; 81001; 81025; 87086; 99285

== ENCOUNTER 2023-08-11 18:47 | Emergency (ER) | payer MEDICAID, OTHER ==
[~2023-08-11] VITALS: Ht 157.5 cm; Wt 120.2 kg
[2023-08-11 19:20] VITALS: BP 104/72; PULSE 88; RESP 16; TEMP 98; O2SAT 100
[2023-08-11] MEDS ORDERED: NACL 0.9% 1,000 ML IV ONE (20:00)
[2023-08-11] MEDS ORDERED: KETOROLAC 30 MG/ML VIAL IVP ONE (20:00)
[2023-08-11] MEDS ORDERED: ONDANSETRON 4 MG/2 ML VIAL IVP ONE (20:00)
[2023-08-11 20:15] VITALS: O2SAT 98
[2023-08-11 20:25] VITALS: BP 103/41; PULSE 86; RESP 12; TEMP 99.6; O2SAT 99
[2023-08-11 20:28] LABS: BASOPHILS % (AUTO) 0.5 % (0.0-2.0); EOSINOPHILS % (AUTO) 0.4 % (0.0-4.0); HEMATOCRIT 39.9 % (36-48); HEMOGLOBIN 13.8 g/dL (12.0-16.0); LYMPHOCYTES % (AUTO) 10.8 % (20.5-51.1); MEAN CORPUSCULAR HEMOGLOBIN 30 pg (27-31); MEAN CORPUSCULAR HGB CONC 35 g/dL (33-37); MEAN CORPUSCULAR VOLUME 85.7 fL (80-94); MONOCYTES # (AUTO) 0.3 K/uL (0.8-1.0); NEUTROPHILS # (AUTO) 7.7 K/uL (1.8-7.7); NEUTROPHILS % (AUTO) 85.3 % (42.2-75.2); PLATELET COUNT (AUTO) 179 K/uL (140-450); RED BLOOD CELL COUNT(AUTO) 4.65 MIL/uL (4.20-5.40); RED CELL DISTRIBUTION WIDTH 14.1 % (11.6-13.7)
[2023-08-11 20:30] LABS: BILIRUBIN,URINE NEGATIVE (NEGATIVE); BLOOD, URINE NEGATIVE (NEGATIVE); COLOR,URINE YELLOW (YELLOW); LEUKOCYTE ESTERASE ,URINE 2+ (NEGATIVE); NITRITE, URINE NEGATIVE (NEGATIVE); PROTEIN,URINE NEGATIVE (NEGATIVE); UGLUCOSE NEGATIVE (NEGATIVE); UROBILINOGEN,URINE 0.2 EU/dL (0.2 - 1)
[2023-08-11 20:35] LABS: APPEARANCE,URINE SLIGHTLY CLOUDY (CLEAR)
[2023-08-11 20:36] LABS: RBC,URINE 0 /HPF (0-5)
[2023-08-11 20:37] LABS: BACTERIA,URINE 2+ /HPF (None Seen); MUCUS,URINE 1+ /LPF (None Seen); SQUAMOUS EPITHELIAL CELL,UR 4-10 (MOD) /LPF (0-3 (FEW))
[2023-08-11 20:54] LABS: ALBUMIN 3.6 g/dL (3.4-5.0); ANION GAP 13.8 (8-16); CALCIUM 8.7 mg/dL (8.5-10.1); CARBON DIOXIDE 25.9 mmol/L (21-32); CREATININE 0.8 mg/dL (0.6-1.3); POTASSIUM 3.7 mmol/L (3.5-5.1); TOTAL BILIRUBIN 1.1 mg/dL (0.0-1.0); TOTAL PROTEIN, SERUM 8.9 g/dL (6.4-8.2)
[2023-08-11] MEDS ORDERED: CEPH250C16 PO (21:36)
[2023-08-11] MEDS ORDERED: NAPR-1704 PO (21:36)
[2023-08-11 22:13] LABS: FLU A ANTIGEN negative (NEGATIVE); FLU B ANTIGEN negative (NEGATIVE)
== END 2023-08-11 22:20 | disposition home or self-care (01) ==
LOC: MED 18:47
DX: N39.0 Urinary tract infection, site not specified (principal); Z20.822 Contact with and (suspected) exposure to COVID-19; J45.909 Unspecified asthma, uncomplicated; Z88.8 Allergy status to other drugs, medicaments and biological substances; Z79.899 Other long term (current) drug therapy
CPT/HCPCS: 36415; 80053; 81001; 81025; 85025; 87086; 87426; 87804; 96361; 96374; 96375; 99284; J1885; J2405; J7030